=== PATIENT | male | born 1995 ===

== ENCOUNTER 2016-12-03 01:25 | Emergency (ER) | payer MEDICAID ==
[2016-12-03 01:33] VITALS: RESP 18; O2SAT 100
[2016-12-03] MEDS ORDERED: SODIUM CHLORIDE 0.9% FLUSH 10 ML SOL IV PRN (01:51)
[2016-12-03] MEDS ORDERED: SODIUM CHLORIDE 0.9% 1000ML 1,000 ML IV ONE ×2 (01:51→03:41)
[2016-12-03 02:36] LABS: ALBUMIN 4.9 gm/dl (3.4-5.0); CALCIUM 9.9 mg/dl (8.5-10.1); POTASSIUM 3.7 mMol/L (3.5-5.1)
[2016-12-03 02:38] LABS: BASOPHILS % (AUTO) 0 % (0-3); EOSINOPHILS % (AUTO) 0 % (0-9); HEMATOCRIT 46 % (39-53); MEAN CORPUSCULAR HGB CONC 34.4 gm/dl (32.0-36.0); MEAN CORPUSCULAR VOLUME 91 fL (80-100); MONOCYTES % (AUTO) 8.9 % (0-12); NEUTROPHILS % (AUTO) 84.3 % (37-80)
[2016-12-03 05:02] VITALS: BP 106/53; PULSE 87; TEMP 98.9
== END 2016-12-03 05:01 | disposition home or self-care (01) | DRG 392 ==
LOC: ED 01:25
DX: K52.9 Noninfective gastroenteritis and colitis, unspecified (principal)
CPT/HCPCS: 80053; 85025; 99283

== ENCOUNTER 2017-03-15 11:00 | Emergency (ER) | payer MEDICAID, OTHER ==
[2017-03-15 11:40] VITALS: BP 116/73; PULSE 70; RESP 16; TEMP 97.8; O2SAT 92
== END 2017-03-15 12:12 | disposition home or self-care (01) ==
LOC: ED 11:00
DX: S02.2XXA Fracture of nasal bones, initial encounter for closed fracture (principal); Y04.8XXA Assault by other bodily force, initial encounter
CPT/HCPCS: 70160; 99282